=== PATIENT | female | born 1980 | race Caucasian/White ===

== ENCOUNTER 2021-06-07 09:38 | Outpatient (REF) | payer OTHER, SELFPAY ==
[2021-06-07 10:03] LABS: MANUAL DIFF FLAG NO
[2021-06-07 10:31] LABS: Basophils Absolute Auto 0.1 X10*3/uL (0.0-0.2); Basophils Percent Auto 0.9 % (0-2); Eosinophils Absolute Auto 0.2 X10*3/uL (0.0-0.4); Eosinophils Percent Auto 1.9 % (0-4); Hematocrit 27.3 % (37.0-47.0); Imm Gran Abs Auto 0.02 X10*3/uL (0.00-0.03); Imm Gran Pct Auto 0.2 % (0.0-0.4); Lymphocytes Absolute Auto 2.8 X10*3/uL (1.2-4.9); Lymphocytes Percent Auto 35.3 % (20-40); Mean Corpuscular HGB Conc 25.3 g/dl (31.0-35.0); Mean Corpuscular Hemoglobin 14.9 pg (27.0-33.0); Mean Platelet Volume 9.8 fL (9.4-12.3); Monocytes Absolute Auto 0.6 X10*3/uL (0.1-1.2); Neutrophils Absolute Auto 4.4 x10*3/uL (2.0-8.3); Neutrophils Percent Auto 54.7 % (45-73); Platelet Count 397 X10*3/uL (160-400); Red Blood Count 4.63 X10*6/uL (4.20-5.50); Red Cell Distribution Width 21.3 % (11.0-16.0); White Blood Count 8.1 X10*3/uL (4.8-10.8)
[2021-06-07 11:01] LABS: Hemoglobin 6.9 g/dl (12.0-16.0)
[2021-06-07 11:36] LABS: Alanine Aminotransferase 11 U/L (0-31); Albumin Level 4.2 g/dL (3.5-5.0); Alkaline Phosphatase 90 U/L (39-117); Anion Gap 12 (12-20); Aspartate Amino Transferase 12 U/L (5-31); Bilirubin Total 0.2 mg/dL (0.0-1.0); Blood Urea Nitrogen 12 mg/dL (9-16); Calcium 9.2 mg/dL (8.4-10.2); Carbon Dioxide 24 mmol/L (22-29); Chloride 107 mmol/L (96-108); Cholesterol 172 mg/dL; Estimated Glomerular Filt Rate > 60; Glucose Fasting 94 mg/dL (60-99); HDL Cholesterol 43 mg/dL; LDL Cholesterol Calculated 116 mg/dl; Potassium 4.8 mmol/L (3.3-5.1); Sodium 138 mmol/L (135-145); Total Protein 7.3 g/dL (6.5-8.0); Triglycerides 68 mg/dL
[2021-06-07 11:38] LABS: TSH reflex Free T4 1.51 uIU/mL (0.32-4.0)
[2021-06-08 06:36] LABS: DHEA Sulfate 66 mcg/dL (15-205); Follicle Stimulating Hormone 6.4 mIU/mL; Prolactin 6.5 ng/mL
[2021-06-15 14:11] LABS: Testosterone, Free 1.1 pg/mL (0.1-6.4); Testosterone, Total 9 ng/dL (2-45)
== END 2021-06-07 09:39 | disposition home or self-care (01) ==
LOC: HO.LAB 09:38
PROVIDERS: PCP Nurse Practitioner Family; Visit Provider Nurse Practitioner Family
DX: N92.6 Irregular menstruation, unspecified (principal); I10 Essential (primary) hypertension; E78.00 Pure hypercholesterolemia, unspecified; Z76.89 Persons encountering health services in other specified circumstances; Z13.1 Encounter for screening for diabetes mellitus
CPT/HCPCS: 36415; 80053; 80061; 82627; 83001; 84146; 84402; 84403; 84443; 85025

== ENCOUNTER 2021-06-07 11:33 | Emergency (ER) | payer OTHER, SELFPAY ==
[2021-06-07 12:52] VITALS: BP 159/78; PULSE 91; RESP 18; TEMP 36; O2SAT 100; BMI 35.7
[2021-06-07 14:04] VITALS: BP 128/77; PULSE 82; RESP 18; O2SAT 100
[2021-06-07] MEDS: 0.9 % Sodium Chloride 1,000 ML 999 ML IV (14:10)
--- NOTE | 2021-06-07 14:17 | ED_ITS ---
HPI - General Adult General Chief complaint: Recheck/Abnormal Lab/Rx Stated complaint: needs blood transfusion Time Seen by Provider: 06/07/21 12:51 Source: patient Limitations: no limitations History of Present Illness HPI narrative: Patient sent in by her PCP after outpatient labs revealed anemia with a hemoglobin of 6.9. Patient has a history of menorrhagia over the past 6 months. LMP was 2 weeks ago. She does not have any current active vaginal bleeding. She has been referred to Gynecology but has not yet seen them. She states she complains of some lightheadedness on occasion. She did have 1 episode 3 days ago where she thinks she might have passed out. No chest pain or dyspnea however. No prior history of anemia or transfusions. No GI bleeding or other source of bleeding. No nausea vomiting or significant abdominal pain Related Data Previous Rx's Medication Instructions Recorded ferrous sulfate 325 mg (65 mg 325 mg PO BID #60 tab 06/07/21 iron) tablet (Feosol) Allergies Allergy/AdvReac Type Severity Reaction Status Date / Time No Known Allergies Allergy Verified 06/07/21 09:03 Review of Systems Constitutional: Comments: No fevers or chills. Some malaise Cardiovascular: Comments: No chest pain or palpitation Respiratory: Comments: No dyspnea or cough Gastrointestinal: Comments: No abdominal pain Genitourinary: Comments: Menorrhagia as mentioned Integumentary/Breasts: Comments: No rash although she states she feels itchy Neurologic: Comments: No focal weakness PMFSH Past Medical History Surgical History History of loop electrical excision procedure (LEEP) History of neck surgery Family History Family History (Updated 06/07/21 @ 09:11 by PAUL FairchildC) Mother Diabetes Father Diabetes Maternal Grandmother Cervical cancer, Onset Age: 54 Maternal Aunt Cervical cancer, Onset Age: 50 Social History Social History (Updated 06/07/21 @ 08:54 by LYNN Chaparro) Housing: House Alcohol intake: current Alcohol intake frequency: holidays/special occasions only Patient Tobacco Use Status: Current everyday Tobacco user Tobacco use type: Cigarette and Pipe Cigarettes Per Day: 4 e-Cigarette/Vaping Use: Never Used Second Hand Smoke Exposure: Yes Advance Directives: No Advance Directives Information Provided: No service: No Current occupational status: employed 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 Vital signs normal. Resp Other: No respiratory distress Cardio Other: Normal heart rate GI Other: No abdominal pain Other: Deferred as patient is currently asymptomatic Skin Other: Warm and dry Neuro Other: Alert and oriented Course Course Course Narrative: Anemia secondary to menorrhagia. Hemoglobin confirmed at 6.9 from lab earlier today. IV normal saline ordered. I discussed with patient risks and benefits of transfusion. She does qualify as her hemoglobin is at 6.9, which is under the 7.0 limits. She understands that the benefit of transfusion is that it would probably make her symptomatic we feel better fairly quickly. She also understands the risks of transfusion reaction along with much smaller risk of Rogers pathogen transmission. Given the risk benefit ratio and the fact that she is not currently actively bleeding, she prefers conservative treatment with oral iron replacement therapy and semi urgent follow-up with gynecology to help control her menorrhagia prior to her next period. She will return if she has any significant bleeding in the meantime. 15:20. Patient is feeling much better after IV fluids. Stable for discharge home Discharge Plan Discharge Clinical Impression: Menorrhagia, Anemia Patient Disposition: Home, Self-Care Instructions: Menorrhagia (ED), Anemia (ED) Additional Instructions: Return if worse, especially if you have bleeding before you see a instrument technician apprentice. Prescriptions: New ferrous sulfate [Feosol] 325 mg (65 mg iron) tablet 325 mg PO BID Qty: 60 0RF
== END 2021-06-07 15:32 | disposition home or self-care (01) ==
PROVIDERS: Emergency Provider Emergency Medicine; PCP Nurse Practitioner Family
DX: N92.0 Excessive and frequent menstruation with regular cycle (principal); D64.9 Anemia, unspecified; F17.200 Nicotine dependence, unspecified, uncomplicated
CPT/HCPCS: 96360; 99284

== ENCOUNTER 2021-06-22 08:48 | Outpatient (REF) | payer OTHER, SELFPAY ==
--- NOTE | ~2021-06-22 | US_ITS ---
EXAMINATION: US PELVIS CLINICAL INFORMATION: Excessive and frequent menstruation. COMPARISON: None TECHNIQUE: Ultrasound of the pelvis is performed using both transabdominal and transvaginal transducers along with Doppler. Transvaginal imaging is performed due to inadequate visualization transabdominally. FINDINGS: UTERUS: The uterus is retroverted and measures 8.8 cm in length, 4.9 mL in AP and 5.3 cm in transverse dimension. The endometrium is not visualized well. The uterus is smooth in contour and has normal myometrial echogenicity. There is a submucosal echogenic lesion measuring 2.5 x 2.2 x 2.7 seen in the lower uterine segment/cervix with prominent vasculature. ADNEXA: Both ovaries are visualized. There is normal color flow to the adnexa. There is no ovarian torsion. There is no pelvic ascites or fluid collection. Right ovary measures 3.2 x 2.4 x 1.9 cm and volume 7.8 mL. There appears unremarkable. Left ovary measures 3.9 x 1.9 x 2.3 cm and volume 8.8 mL. There is a dominant follicle measuring 2.0 x 1.5 x 1.7 cm. US/US pelvic and transvaginal IMPRESSION: 1. Hyperechoic lesion in the cervical canal suspicious for a hypervascular fibroid, polyp or mass. Recommend endoscopy for further evaluation. 2. Small follicles with a dominant follicle, left ovary. 3. Unremarkable right ovary.
[2021-06-22 11:30] LABS: Basophils Absolute Auto 0.1 X10*3/uL (0.0-0.2); Basophils Percent Auto 0.8 % (0-2); Eosinophils Absolute Auto 0.2 X10*3/uL (0.0-0.4); Eosinophils Percent Auto 2.5 % (0-4); Hematocrit 33.9 % (37.0-47.0); Hemoglobin 8.5 g/dl (12.0-16.0); Imm Gran Abs Auto 0.03 X10*3/uL (0.00-0.03); Imm Gran Pct Auto 0.4 % (0.0-0.4); Lymphocytes Percent Auto 27.7 % (20-40); MANUAL DIFF FLAG SCAN; Mean Corpuscular HGB Conc 25.1 g/dl (31.0-35.0); Mean Corpuscular Hemoglobin 16.8 pg (27.0-33.0); Mean Corpuscular Volume 66.9 fL (80.0-98.0); Monocytes Absolute Auto 0.4 X10*3/uL (0.1-1.2); Monocytes Percent Auto 5.7 % (2-11); Neutrophils Absolute Auto 4.6 x10*3/uL (2.0-8.3); Neutrophils Percent Auto 62.9 % (45-73); PLT ABN DIST 1; Platelet Count 503 X10*3/uL (160-400); Red Blood Count 5.07 X10*6/uL (4.20-5.50); Red Cell Distribution Width 32.4 % (11.0-16.0); SCAN SMEAR FLAG 1; White Blood Count 7.3 X10*3/uL (4.8-10.8)
[2021-06-22 12:09] LABS: Anion Gap 12 (12-20); Blood Urea Nitrogen 12 mg/dL (9-16); Calcium 9.3 mg/dL (8.4-10.2); Carbon Dioxide 25 mmol/L (22-29); Chloride 106 mmol/L (96-108); Estimated Glomerular Filt Rate > 60; Folate 10.7 ng/mL (> or = 4.0); Glucose Random 92 mg/dL (60-115); Iron 214 mcg/dL (30-160); Percent Iron Saturation 48 % (15-50); Potassium 4.7 mmol/L (3.3-5.1); Sodium 138 mmol/L (135-145); Total Iron Binding Capacity 450 mcg/dL (228-428); Unsaturated Iron Binding 236 ug/dL; Vitamin B12 304 pg/mL (200-900)
[2021-06-22 12:18] LABS: SLIDE REVIEW VERIFIED
== END 2021-06-22 08:49 | disposition home or self-care (01) ==
LOC: HO.HMGCX 08:48
PROVIDERS: Visit Provider Nurse Practitioner Family
DX: N92.0 Excessive and frequent menstruation with regular cycle (principal); I10 Essential (primary) hypertension; R35.0 Frequency of micturition
CPT/HCPCS: 36415; 76830; 76856; 80048; 82607; 82746; 83540; 85025

== ENCOUNTER 2021-06-22 12:26 | Outpatient (REF) | payer OTHER, SELFPAY ==
--- NOTE | ~2021-06-22 | MM_ITS ---
EXAMINATION: MM SCREENING DIGITAL BREAST TOMOSYNTHESIS, BILATERAL CLINICAL INFORMATION: Screening. Asymptomatic. Age 41. No prior breast imaging. Family history breast cancer, maternal grandmother. The lifetime risk of breast cancer based on the Tyrer-Cuzick Model is 14%. COMPARISON: None (current study represents initial baseline exam). TECHNIQUE: Digital breast tomosynthesis is performed in both the craniocaudal and mediolateral oblique views along with computer-aided detection (CAD). Synthesized 2D images are generated from the tomosynthesis. Additional left MLO view is provided. FINDINGS: There are scattered areas of fibroglandular density (ACR BI-RADS breast composition Category b). There are no significant masses, abnormal calcifications, or other abnormalities. The axilla and skin contours are unremarkable. MM/MM tomosynthesis screening BI IMPRESSION: No mammographic evidence of malignancy. ASSESSMENT: BI-RADS 1: Negative RECOMMENDATION: Routine annual mammography screening. This patient's information was entered into a reminder system with a target due date for their next mammogram.
== END 2021-06-22 12:27 | disposition home or self-care (01) ==
LOC: HO.MAMMO 12:26
PROVIDERS: Visit Provider Nurse Practitioner Family
DX: Z12.31 Encounter for screening mammogram for malignant neoplasm of breast (principal)
CPT/HCPCS: 77063; 77067

== ENCOUNTER → 2021-06-30 09:58 | Outpatient (BNVA) | payer OTHER, SELFPAY | PROVIDERS: PCP Nurse Practitioner Family; Visit Provider Advanced Practice Midwife | DX: N93.9 Abnormal uterine and vaginal bleeding, unspecified (principal) | CPT/HCPCS: 99202; Q3014 ==

== ENCOUNTER 2021-07-03 08:54 | Outpatient (REF) | payer OTHER, SELFPAY ==
[2021-07-06 02:51] LABS: HPV mRNA E6/E7 rflx Not Detected (Not Detected)
== END 2021-07-03 08:55 | disposition home or self-care (01) ==
LOC: HO.LAB 08:54
PROVIDERS: PCP Nurse Practitioner Family; Visit Provider Obstetrics & Gynecology
DX: Z12.4 Encounter for screening for malignant neoplasm of cervix (principal); Z11.51 Encounter for screening for human papillomavirus (HPV); N88.8 Other specified noninflammatory disorders of cervix uteri; N93.9 Abnormal uterine and vaginal bleeding, unspecified
CPT/HCPCS: 81025; 87491; 87591; 87624; 88142; 88305

== ENCOUNTER 2021-07-19 14:27 | Outpatient (REF) | payer OTHER, SELFPAY | END 2021-07-19 14:28 | disposition home or self-care (01) | LOC: HO.LAB 14:27 | PROVIDERS: PCP Nurse Practitioner Family; Visit Provider Obstetrics & Gynecology | DX: Z13.89 Encounter for screening for other disorder (principal) ==

== ENCOUNTER 2021-07-20 09:22 | Outpatient (REF) | payer OTHER, SELFPAY ==
[2021-07-20 16:03] LABS: CT PCR NOT DETECTED (Not Detect.); NG PCR NOT DETECTED (Not Detect.)
== END 2021-07-20 09:23 | disposition home or self-care (01) ==
LOC: HO.LAB 09:22
PROVIDERS: PCP Nurse Practitioner Family; Visit Provider Obstetrics & Gynecology
DX: Z11.3 Encounter for screening for infections with a predominantly sexual mode of transmission (principal); N88.8 Other specified noninflammatory disorders of cervix uteri; N93.9 Abnormal uterine and vaginal bleeding, unspecified
CPT/HCPCS: 81025; 87491; 87591; 88305

== ENCOUNTER → 2021-08-11 12:31 | Outpatient (BNVA) | payer OTHER, SELFPAY | PROVIDERS: Visit Provider Obstetrics & Gynecology | DX: N84.1 Polyp of cervix uteri (principal) ==

== ENCOUNTER 2021-08-18 09:34 | Day surgery (SDC) | payer OTHER, SELFPAY ==
--- NOTE | 2021-08-17 09:14 | HO.ANESPROP2 ---
Documented by User: Brandy Hobson NP 08/17/21 09:18 HPI - Anesthesia Eval Consult details Narrative: 41yo F for Polypectomy with ECC PMFSH Active Problems Active Problems: All Active Problems (Updated 08/11/21 @ 12:49 by Regulo Ag MD) Unsatisfactory cervical Papanicolaou smear (Acute) Cervical polyp (Acute) Physical exam (Acute) Abnormal uterine bleeding (Acute) Cervical mass (Acute) Low hemoglobin and low hematocrit (Acute) Urinary frequency (Acute) Menorrhagia (Acute) Skin nodule (Acute) History of loop electrical excision procedure (LEEP) (Acute) Encounter to establish care (Acute) Family History Family History Mother Diabetes Father Diabetes Maternal Grandmother Cervical cancer, Onset Age: 54 Maternal Aunt Cervical cancer, Onset Age: 50 Surgical History Surgical History H/O tubal ligation History of loop electrical excision procedure (LEEP) History of neck surgery Social History Social History Housing: House Alcohol intake: current Alcohol intake frequency: does not drink Patient Tobacco Use Status: Current everyday Tobacco user Tobacco use type: Cigarette and Pipe Cigarettes Per Day: 4 e-Cigarette/Vaping Use: Never Used Second Hand Smoke Exposure: Yes Advance Directives: No Advance Directives Information Provided: Yes Patient : No service: No Current occupational status: employed 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 Cognitive needs: No Hearing needs: No Vision needs: Yes (glasses) Meds Allergies Allergy/AdvReac Type Severity Reaction Status Date / Time No Known Allergies Allergy Verified 07/03/21 09:31 Home Medications Medication Instructions Recorded Confirmed Last Taken Type calcium gluconate 60 mg calcium 60 mg PO DAILY 06/30/21 07/13/21 Unknown History (650 mg) tablet Exam Exam Date and Time: August 17, [id number] Pertinent Lab Results Pertinent Lab Results: Laboratory Tests 06/22/21 06/22/21 09:35 09:35 WBC 7.3 Hgb 8.5 L D Hct 33.9 L D Plt Count 503 H D Sodium 138 Potassium 4.7 Chloride 106 Carbon Dioxide 25 BUN 12 Creatinine 0.68 Assessment and Plan Assessment Anesthesia Assessment: Chart Reviewed Documented by User: Byron Porter MD 08/18/21 10:19 PMFSH Family History Family History Mother Diabetes Father Diabetes Maternal Grandmother Cervical cancer, Onset Age: 54 Maternal Aunt Cervical cancer, Onset Age: 50 Family history of problems with anesthesia: No Surgical History Surgical History H/O tubal ligation History of loop electrical excision procedure (LEEP) History of neck surgery History of Problems with Anesthesia: No Social History Social History Housing: House Alcohol intake: current Alcohol intake frequency: does not drink Patient Tobacco Use Status: Current everyday Tobacco user Tobacco use type: Cigarette and Pipe Cigarettes Per Day: 4 e-Cigarette/Vaping Use: Never Used Second Hand Smoke Exposure: Yes Advance Directives: No Advance Directives Information Provided: Yes Patient : No service: No Current occupational status: employed 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 Cognitive needs: No Hearing needs: No Vision needs: Yes (glasses) Meds Allergies Allergy/AdvReac Type Severity Reaction Status Date / Time No Known Allergies Allergy Verified 07/03/21 09:31 Home Medications Medication Instructions Recorded Confirmed Last Taken Type calcium gluconate 60 mg calcium 60 mg PO DAILY 06/30/21 07/13/21 Unknown History (650 mg) tablet Exam Airway Mallampati Class: II TM Dist: >3cm Neck ROM: Full Assessment and Plan Assessment Anesthesia Assessment: Anesthesia Plan Discussed Final Anesthetic Review Family History of Problems with Anesthesia: No History of Problems with Anesthesia: No NPO: Yes ASA Class: II Final Preanesthetic Review: No Changes in Pt Med Stat, Meds/Allgs Chart Reviewed, Consent Obtained/Reviewed and Anes Risks/Benef Reviewed Patient Risk: Low Procedure Risk: Low Anesthetic Plan Anesthetic Plan: GA Disposition: Standard PACU
[2021-08-18 06:54] VITALS: BMI 35.5
[2021-08-18 09:44] VITALS: BP 116/93; PULSE 80; RESP 18; TEMP 35.9; O2SAT 97
[2021-08-18 10:01] LABS: UPreg QC Valid YES; Urine Pregnancy NEGATIVE (NEGATIVE)
[2021-08-18] MEDS: Lactated Ringers 1,000 ML 100 ML IVCONT (10:06)
--- NOTE | 2021-08-18 10:18 | MHC.SHP ---
Pre-Procedural Eval Section A Date of Service: 08/18/21 The patient is an INPATIENT: No Changes since office visit: No Cold of Flu in the past 2 weeks, No New Medical Problems, No Changes in Medication and No Patient answered all questions The History & Physical has been completed within 30 days and I have reviewed it.: Yes Section B Chief Complaint: Polyp of cervix uteri Allergies: Allergies Allergy/AdvReac Type Severity Reaction Status Date / Time No Known Allergies Allergy Verified 07/03/21 09:31 Plan Diagnosis/Plan: Unchanged I have reviewed the history and physical and performed a pertinent physical examination on my patient. No changes have occurred unless specified.
--- NOTE | 2021-08-18 11:04 | PM.OP ---
Brief Operative Note Date of Service: 08/18/21 Pre-op diagnosis: 3 cm Endocervical polyp Post-op diagnosis: same (Excision of endocervical) Procedure: Excision of endocervical polyp Surgeon: Regulo Ag MD Was an Straightener used for this Procedure?: No Estimated blood loss (mL): 0 Pathology: other (Endocervical polyp) Condition: stable Disposition: PACU
--- NOTE | 2021-08-18 11:05 | W.PM.OPN ---
Operative Note Operative Note Date of Service: 08/18/21 Narrative: Preop diagnosis: 3 cm Endocervical polyp Operation: Excision of endocervical polyp Postop diagnosis: The same Quantitative blood loss : 0 cc Pathology endocervical: polyp Complications: none Procedure: The patient was put in the dorsal is stomach position was scrubbed and draped in the usual sterile fashion. A speculum was inserted in the patient's vagina, the endocervical polyp was grasped with single-tooth tenaculum and pulled outside endocervical canal. Identifying the base of the endocervical polyp stalk, and using electrocautery, the endocervical polyp was excised from its base, electrocautery was used to secure hemostasis. The patient tolerated the procedure well, all instruments were taken out of the patient vaginal cavity and the patient was transferred to the PACU in stable conditions.
[2021-08-18 11:11] VITALS: BP 127/62; PULSE 92; RESP 14; TEMP 36.1; O2SAT 96
[2021-08-18 11:16] VITALS: BP 116/66; PULSE 83; RESP 14; O2SAT 97
[2021-08-18 11:21] VITALS: BP 129/79; PULSE 86; RESP 16; O2SAT 97
[2021-08-18 11:26] VITALS: BP 126/80; PULSE 89; RESP 16; O2SAT 96
[2021-08-18 11:40] VITALS: BP 129/80; PULSE 72; RESP 16; O2SAT 99
== END 2021-08-18 12:05 | disposition home or self-care (01) ==
PROVIDERS: PCP Nurse Practitioner Family; Visit Provider Obstetrics & Gynecology
PROC: 0UBC7ZZ Excision of Cervix, Via Natural or Artificial Opening (ICD-10-PCS; CPT 57522; principal; 2021-08-18 11:20)
DX: N84.1 Polyp of cervix uteri (principal); N93.9 Abnormal uterine and vaginal bleeding, unspecified; R87.615 Unsatisfactory cytologic smear of cervix; Z98.51 Tubal ligation status; Z98.890 Other specified postprocedural states; F17.210 Nicotine dependence, cigarettes, uncomplicated
CPT/HCPCS: 57500; 81025; 88305; J1100; J2250; J2405; J3010

== ENCOUNTER → 2021-08-31 11:19 | Outpatient (BNVA) | payer OTHER, SELFPAY | PROVIDERS: PCP Nurse Practitioner Family; Visit Provider Obstetrics & Gynecology | DX: D25.9 Leiomyoma of uterus, unspecified (principal) ==

== ENCOUNTER 2022-02-06 09:47 | Outpatient (REF) | payer OTHER, SELFPAY ==
[2022-02-06 10:11] LABS: Hematocrit 40.2 % (37.0-47.0); Hemoglobin 12.6 g/dl (12.0-16.0); Mean Corpuscular HGB Conc 31.3 g/dl (31.0-35.0); Mean Corpuscular Hemoglobin 24.2 pg (27.0-33.0); Mean Corpuscular Volume 77.3 fL (80.0-98.0); Mean Platelet Volume 9.7 fL (9.4-12.3); Platelet Count 450 X10*3/uL (160-400); Red Cell Distribution Width 14.6 % (11.0-16.0)
== END 2022-02-06 09:48 | disposition home or self-care (01) ==
LOC: HO.LAB 09:47
PROVIDERS: PCP Physician Assistant; Visit Provider Obstetrics & Gynecology
DX: D25.9 Leiomyoma of uterus, unspecified (principal)
CPT/HCPCS: 36415; 85027

== ENCOUNTER 2023-11-27 09:32 | Outpatient (AMB) | payer OTHER, BC, SELFPAY ==
[2023-11-27 09:34] VITALS: BP 124/82; PULSE 88; O2SAT 99; BMI 37.3
--- NOTE | 2023-11-27 09:34 | A.OFFPC_ITS ---
Vital Signs 11/27/23 09:34 Height 5 ft 5 in Weight 224 lb BMI 37.3 BP 124/82 Blood Pressure Location Lt brachial Position Sitting Pulse 88 Pulse Source Pulse Oximeter Pulse Oximetry (%) 99 Oxygen Delivery Method Room Air Intake Visit Reasons: PE Intake Note: Patient is here today for a physical. 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 Patient has a past medical history of iron deficiency anemia. Nyla--> reports over the last few months she has been having worsening dizziness episodes especially related to changes in her head movements or body position. She does report a few episodes of passing out. She otherwise denies any heart palpitations, chest discomfort, shortness of breath, vomiting or diarrhea. She attributes these symptoms to perhaps having anemia again thus will recheck labs. .. Obesity: Patient does understand her BMI is well over 30 will work on being more physically active and adapting a better eating habits to reduce her weight . 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 Vaccine: Patient up-to-date with COVID vaccine, flu vaccine. Needs tetanus vaccine [facility] Surgical History H/O tubal ligation History of loop electrical excision procedure (LEEP) History of neck surgery Family History Mother Diabetes Father Diabetes Maternal Grandmother Cervical cancer, Onset Age: 54 Maternal Aunt Cervical cancer, Onset Age: 50 Social History (Updated 11/27/23 @ 09:55 by Jaren Barrett PA-C) Housing: House Alcohol intake: never Patient Tobacco Use Status: Current someday Tobacco user Tobacco use type: Cigarette and Pipe Cigarettes Per Day: 4 e-Cigarette/Vaping Use: Never Used Second Hand Smoke Exposure: Yes service: No Current occupational status: employed 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 1. Little interest or pleasure in doing things: more than half the days 2. Feeling down, depressed, or hopeless: more than half the days 3. Trouble falling or staying asleep, or sleeping too much: nearly every day 4. Feeling tired or having little energy: more than half the days 5. Poor appetite or overeating: not at all 6. Feeling bad about yourself - or that you are a failure or have let yourself or your family down: not at all 7. Trouble concentrating on things, such as reading the newspaper or watching television: more than half the days 8. Moving or speaking so slowly that other people could have noticed. Or the opposite - being so fidgety or restless that you have been moving around a lot more than usual: not at all 9. Thoughts that you would be better off or of hurting yourself in some way: not at all Total score: 11 Depression Screening Interpretation: Positive Depression Screening Follow-up: Existing condition and Declines treatment Depression Screening Done: Yes 02621 - PHQ-9 Billing: Yes Source: Developed by Drs. Lex Troy, Fiona Greco, Kolby Andrews and colleagues, with an educational charu from [employer]. Thrive Questionnaire Date Thrive assessed: 11/27/23 I am a: Patient What is your living situation today?: I have a steady place to live Within the past 12 months, did the food you bought not last and you didn't have the money to get more?: Never true Within the past 12 months, did you worry whether your food would run out before you got money to buy more?: Never true Do you have trouble paying for medicines?: No Do you have trouble getting transportation to medical appointments?: No Do you have trouble paying your heating and electricity bill?: No Do you have trouble taking care of your child, family member or friend?: No Do you have trouble with day-to-day activities such as bathing, preparing meals, shopping, managing finances, etc.?: No Are you currently unemployed and looking for a job?: No Are you interested in more education?: No Please select the resources that you would like help with: None Currently or been in a relationship where the following occur: No concerns reported THRIVE Score: 0 AUDIT C Alcohol Use Questionnaire (AUDIT-C) 1. How often do you have a drink containing alcohol?: Monthly or less 2. How many drinks containing alcohol do you have on a typical day when you are drinking?: 1 or 2 3. How often do you have six or more drinks on one occasion?: Never Total Score: 1 BETHANY-7 AMB Questionnaire BETHANY-7 Date BETHANY - 7 assessed: 11/27/23 Feeling nervous, anxious, or on edge: 2 = More than half the days Not being able to stop or control worryin = Nearly every day Worrying too much about different things: 3 = Nearly every day Trouble relaxin = More than half the days Being so restless that it is hard to sit still: 2 = More than half the days Becoming easily annoyed or irritable: 0 = Not at all Feeling afraid as if something awful might happen: 1 = Several days Total BETHANY-7 score (0-4 normal; 5-9 mild; 10-14 moderate; 15-21 severe): 13 Source: Developed by Drs. Lex Troy, Fiona Greco, Kolby Andrews and colleagues, with an educational charu from [employer] BETHANY-7 Assessment Billing BETHANY-7 Assessment Tool: BETHANY-7 Assessment 31430 Review of Systems Const Denies body aches, Denies chills, Denies excessive sweating, Denies fatigue, Denies fever(s) and Denies headache(s) Eyes Denies blurry vision ENT Denies dysphagia, Denies vertigo, Denies dizziness, Denies headache(s), Denies hearing loss and Denies tinnitus Card Denies chest pain, Denies chest pain with activity, Denies syncope, Denies irregular heart rhythm and Denies dyspnea Resp Denies chest congestion, Denies cough, Denies hemoptysis, Denies dyspnea and Denies wheezing GI Denies abdominal pain, Denies melena, Denies hematochezia, Denies coffee ground emesis, Denies dysphagia, Denies diarrhea, Denies nausea and Denies vomiting Denies urinary frequency, Denies dysuria, Denies urinary hesitancy and Denies urinary urgency Musc Denies arthralgias, Denies limited range of motion, Denies muscle cramps and Denies muscle weakness Skin/Breast Denies rash and Denies skin ulcer Neuro Denies Abnormal speech present, Denies confusion, Denies vertigo, Denies dizziness, Denies syncope, Denies headache(s), Denies memory loss and Denies seizure-like activity Psych Denies anxiety, Denies confusion, Denies depression, Denies memory loss, Denies panic attacks and Denies paranoia Endo Denies excessive sweating, Denies fatigue, Denies flushing, Denies polydipsia and Denies polyuria Aller/Immun Denies wheezing Physical exam (Primary Care) Vital Signs: Last Vital Signs Pulse 88 11/27/23 09:34 BP 124/82 11/27/23 09:34 Pulse Ox 99 11/27/23 09:34 Oxygen Delivery Method Room Air 11/27/23 09:34 BMI result Body Mass Index 37.3 Tobacco/Smoking Status: Tobacco use Status Tobacco use date assessed 11/27/23 11/27/23 09:51 Patient Tobacco Use Status Current someday Tobacco 11/27/23 10:02 Tobacco use type Cigarette,Pipe 11/27/23 09:55 e-Cigarette/Vaping Use Never Used 11/27/23 09:55 PHQ-9: PHQ-9 Score PHQ-9: Total score 11 11/27/23 10:02 Depression Screening Interpretation: Positive Depression Screening Follow-up: Existing condition and Declines treatment Thrive Assessment: Date of Thrive Assessment Date Thrive assessed 11/27/23 11/27/23 09:48 Currently or been in a relationship where the following occur: No concerns reported Const General: cooperative, comfortable, no acute distress, alert and awake; No confusion Orientation/consciousness: oriented to person, oriented to place, patient oriented x3 and No confusion HENMT Head: Yes normocephalic Ears: external ears normal and TM's normal bilaterally Face and sinus: No sinus tenderness Mouth: Normal oral and palatal mucosa present and tongue normal Teeth and gingiva: dentition normal and gingiva normal Throat: Yes posterior oropharynx normal, Yes tonsils normal and Yes uvula midline Eyes Conjunctivae: conjunctivae normal Sclerae: sclerae normal Pupils: Equal, round and reactive pupils present EOM: EOMs intact bilaterally Direct Ophthalmoscopy: No no photophobia Neck Neck: Yes no lymphadenopathy, No tender and Yes no JVD Thyroid: Thyroid normal Carotids: no bruits Chest Chest palpation & inspection: no tenderness Resp Effort & Inspection: normal respiratory effort, no audible wheezes, not labored and no stridor Auscultation: no crackles, no rales, no rhonchi and no wheezes Cardio Jugular venous distension: no JVD Rate: regular rate, not bradycardic and not tachycardic Rhythm: regular rhythm Bruits: no carotid bruits Peripheral pulses: Peripheral pulses 2+ throughout GI Inspection: Yes normal to inspection, No abdominal wall ecchymosis and No visible herniation Palpation (GI): Soft to palpation, nontender, no guarding, not rigid and No hepatosplenomegaly present Auscultation: normoactive bowel sounds General: Yes no CVA tenderness Back/Spine/Pelvis Back: no CVA tenderness and No back tenderness Cervical Spine: cervical ROM normal Thoracic/Lumbar Spine: thoracic and lumbar spine normal to inspection, straight leg raise negative bilaterally, No thoraco-lumbar ROM limited and No lumbar spinal tenderness Skin Lesions: no lesions Rashes: no rashes Wounds: no wounds Neuro General: oriented to person, oriented to place, patient oriented x3, CN's II-XI intact bilaterally and No confusion Cranial nerves: Yes Equal, round and reactive pupils present and Yes Normal accommodation reflex present Cognition (Neuro): normal cognition Speech: No Abnormal speech present Gait exam (Neuro): Normal gait present Motor exam (neuro): 5/5 motor strength present throughout Extrem Right upper extremity: full ROM; no cyanosis Left upper extremity: full ROM; no cyanosis Right lower extremity: no edema Left lower extremity: no edema Psych Appearance: grossly normal Mental Status: mental status grossly normal Affect: normal affect Attitude: cooperative Thought process: Normal thought process present Assessment and Plan Assessment & Plan (1) Annual physical exam: Code(s): Z00.00 - Encounter for general adult medical examination without abnormal findings (2) Iron deficiency: Code(s): E61.1 - Iron deficiency Plan: Patient has a history of iron deficiency anemia. Has of late has been noting seeing some bruising and fatigue and syncopal episodes. Will recheck iron and blood levels. (3) Dizziness: Code(s): R42 - Dizziness and giddiness (4) Fatigue: Code(s): R53.83 - Other fatigue Qualifiers: Fatigue type: unspecified Qualified Code(s): R53.83 - Other fatigue Plan: As above over the last few months has been experiencing more fatigue, dizziness and bruising. Suspecting she has again anemia. Will recheck CBC and iron studies. (5) Screening for diabetes mellitus (DM): Code(s): Z13.1 - Encounter for screening for diabetes mellitus (6) BETHANY (generalized anxiety disorder): Code(s): F41.1 - Generalized anxiety disorder Plan: Patient's BETHANY-7 score positive for anxiety which has been existing condition for her. Most of her anxiety comes from her stressful job and long work hours. He is not interested in medication or mental health therapy at this time. (7) MDD (major depressive disorder), recurrent episode, mild: Code(s): F33.0 - Major depressive disorder, recurrent, mild Plan: Patient's PHQ-9 score positive for mild depression which has been existing condition for her. Again a lot of her mood is related to her job and lack of sleep. Orders: Orders IRON PROFILE 11/27/23 D50.9 - Iron deficiency anemia, unspecified, R42 - Dizziness and giddiness Complete Blood Count no Diff 11/27/23 E61.1 - Iron deficiency TSH reflex Free T4 11/27/23 R53.83 - Other fatigue Comprehensive Bison. Panel Fast 11/27/23 Z13.1 - Encounter for screening for diabetes mellitus Coding Level of Care Code Est Pt Prev Care 40-64y(42231) Diagnoses Annual physical exam Z00.00 Iron deficiency E61.1 Dizziness R42 Fatigue, unspecified type R53.83 Fatigue type: unspecified Screening for diabetes mellitus (DM) Z13.1 BETHANY (generalized anxiety disorder) F41.1 MDD (major depressive disorder), recurrent episode, mild F33.0 Additional Codes BETHANY-7 Assessment Billing - BETHANY-7 Assessment Tool: BETHANY-7 Assessment [id number] ([id number])
== END 2023-11-27 10:10 | disposition home or self-care (01) ==
PROVIDERS: PCP Physician Assistant; Visit Provider Physician Assistant
DX: Z00.00 Encounter for general adult medical examination without abnormal findings (principal); E61.1 Iron deficiency; F33.0 Major depressive disorder, recurrent, mild; R42 Dizziness and giddiness; R53.83 Other fatigue; Z13.1 Encounter for screening for diabetes mellitus; F41.1 Generalized anxiety disorder
CPT/HCPCS: 99396

== ENCOUNTER 2023-11-29 08:31 | Outpatient (REF) | payer OTHER, BC, SELFPAY ==
[2023-11-29 09:33] LABS: Hematocrit 37.1 % (37.0-47.0); Hemoglobin 10.8 g/dl (12.0-16.0); Mean Corpuscular HGB Conc 29.1 g/dl (31.0-35.0); Mean Corpuscular Volume 68.6 fL (80.0-98.0); Mean Platelet Volume 9.7 fL (9.4-12.3); Platelet Count 434 X10*3/uL (160-400); Red Blood Count 5.41 X10*6/uL (4.20-5.50); Red Cell Distribution Width 19.9 % (11.0-16.0); White Blood Count 10.5 X10*3/uL (4.8-10.8)
[2023-11-29 10:24] LABS: Alanine Aminotransferase 17 U/L (0-31); Alkaline Phosphatase 92 U/L (39-117); Anion Gap 11 (12-20); Aspartate Amino Transferase 14 U/L (5-31); Bilirubin Total 0.3 mg/dL (0.0-1.0); Blood Urea Nitrogen 15 mg/dL (9-16); Calcium 9.3 mg/dL (8.4-10.2); Carbon Dioxide 25 mmol/L (22-29); Chloride 109 mmol/L (96-108); Estimated Glomerular Filt Rate > 60; Glucose Fasting 118 mg/dL (60-99); Iron 20 mcg/dL (30-160); Percent Iron Saturation 6 % (15-50); Potassium 4.6 mmol/L (3.3-5.1); Sodium 140 mmol/L (135-145); Total Iron Binding Capacity 347 mcg/dL (228-428); Total Protein 7.6 g/dL (6.5-8.0); Unsaturated Iron Binding 327 ug/dL
[2023-11-29 10:31] LABS: TSH reflex Free T4 1.36 uIU/mL (0.32-4.0)
== END 2023-11-29 08:32 | disposition home or self-care (01) ==
LOC: HO.LAB 08:31
PROVIDERS: PCP Physician Assistant; Visit Provider Physician Assistant
DX: D50.9 Iron deficiency anemia, unspecified (principal); R42 Dizziness and giddiness; R53.83 Other fatigue; Z13.1 Encounter for screening for diabetes mellitus
CPT/HCPCS: 36415; 80053; 83540; 84443; 85027

== ENCOUNTER 2023-12-05 11:05 | Outpatient (REF) | payer OTHER, BC, SELFPAY ==
[2023-12-05 12:29] LABS: Hematocrit 38.6 % (37.0-47.0); Hemoglobin 11.3 g/dl (12.0-16.0); Mean Corpuscular HGB Conc 29.3 g/dl (31.0-35.0); Mean Corpuscular Volume 68.2 fL (80.0-98.0); Platelet Count 490 X10*3/uL (160-400); Red Blood Count 5.66 X10*6/uL (4.20-5.50); Red Cell Distribution Width 19.8 % (11.0-16.0); White Blood Count 9.8 X10*3/uL (4.8-10.8)
[2023-12-05 12:48] LABS: Iron 40 mcg/dL (30-160); Percent Iron Saturation 11 % (15-50); Total Iron Binding Capacity 375 mcg/dL (228-428); Unsaturated Iron Binding 335 ug/dL
[2023-12-05 13:01] LABS: Estimated Average Glucose 117 mg/dL; Hemoglobin A1c % 5.7 % (<6.0)
== END 2023-12-05 11:06 | disposition home or self-care (01) ==
LOC: HO.LAB 11:05
PROVIDERS: PCP Physician Assistant; Visit Provider Physician Assistant
DX: D50.9 Iron deficiency anemia, unspecified (principal); E61.1 Iron deficiency; R73.01 Impaired fasting glucose
CPT/HCPCS: 36415; 83036; 83540; 85027

== ENCOUNTER 2024-11-30 08:55 | Outpatient (AMB) | payer OTHER, BC, SELFPAY ==
--- NOTE | 2024-11-30 08:58 | A.OFFPC_ITS ---
Vital Signs 11/30/24 09:00 Height 5 ft 5 in Weight 225 lb 6 oz BMI 37.5 BP 138/80 Blood Pressure Location Lt brachial Position Sitting Pulse 87 Pulse Source Pulse Oximeter Pulse Oximetry (%) 96 Oxygen Delivery Method Room Air Intake Visit Reasons: ANNUAL Bobbin Cleaner Hand Required: No Accompanied by: Self / Same As Patient Allergies No Known Allergies Allergy (Verified 11/30/24 09:20) Medication List - Last Reconciled 11/30/24 by Jaren Barrett PA-C ferrous sulfate 325 mg PO BID 30 days Tobacco use date assessed: 11/30/24 Dental Screening Dental Screen Date: 11/30/24 Did you have a dental visit in the last 12 months?: Yes Did you have a dental problem in the last 6 months where you did not have access to dental care?: No Was dental information given to patient?: Patient has dentist HPI ANNUAL HPI Details Patient is a 44-year-old female here today for for an annual physical. Patient has a past medical history of iron deficiency anemia, impaired glucose metabolism, obesity family history type 2 diabetes Concerns--> The patient has a history of iron deficiency anemia, which she has had since childhood. She reports experiencing constipation, which she attributes to her iron supplements, and has been managing it with defj-[id number]-[id number] laxatives and dietary adjustments. She has had irregular menstrual cycles and underwent a LEEP procedure in the past, which may contribute to her anemia. .. Impaired glucose metabolism: Most recent fasting blood sugar slightly elevated at 118. The patient has a strong family history of diabetes mellitus, with her father, mother, brother, and sister all diagnosed with the condition. She is concerned about her risk and will undergo screening with fasting blood sugar and A1c tests. .. Class 2 Obesity: Patient does understand her BMI is well over 30 will work on being more physically active and adapting a better eating habits to reduce her weight . .. 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 The patient reports menopausal symptoms, including emotional instability and heavier menstrual bleeding than usual. She has not yet experienced cessation of menstruation but is aware of her family history of early menopause. Vaccine: Patient up-to-date with COVID vaccine, flu vaccine. Needs Tdap vaccine . Mammo: needs Colon cancer screening: Patient in need for colon cancer screening PFSH Surgical History H/O tubal ligation History of loop electrical excision procedure (LEEP) History of neck surgery Family History Mother Diabetes Father Diabetes Maternal Grandmother Cervical cancer, Onset Age: 54 Maternal Aunt Cervical cancer, Onset Age: 50 Brother Diabetes Sister Diabetes Social History Housing: House Alcohol intake: never Patient Tobacco Use Status: Current someday Tobacco user Tobacco use type: Cigarette and Pipe Cigarettes Per Day: 4 e-Cigarette/Vaping Use: Never Used Second Hand Smoke Exposure: Yes service: No Current occupational status: employed 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 1. Little interest or pleasure in doing things: several days 2. Feeling down, depressed, or hopeless: several days 3. Trouble falling or staying asleep, or sleeping too much: several days 4. Feeling tired or having little energy: several days 5. Poor appetite or overeating: several days 6. Feeling bad about yourself - or that you are a failure or have let yourself or your family down: several days 7. Trouble concentrating on things, such as reading the newspaper or watching te levision: several days 8. Moving or speaking so slowly that other people could have noticed. Or the opposite - being so fidgety or restless that you have been moving around a lot more than usual: not at all 9. Thoughts that you would be better off or of hurting yourself in some way: not at all Total score: 7 Depression Screening Interpretation: Positive Depression Screening Follow-up: Existing condition and New Medication prescribed Depression Screening Done: Yes 46487 - PHQ-9 Billing: Yes Source: Developed by Drs. Lex Troy, Fiona Greco, Kolby Andrews and colleagues, with an educational charu from [employer]. Thrive Questionnaire Date Thrive assessed: 11/23/24 I am a: Patient What is your living situation today?: I have a steady place to live Within the past 12 months, did the food you bought not last and you didn't have the money to get more?: Never true Within the past 12 months, did you worry whether your food would run out before you got money to buy more?: Never true Do you have trouble paying for medicines?: No Do you have trouble getting transportation to medical appointments?: No Do you have trouble paying your heating and electricity bill?: No Do you have trouble taking care of your child, family member or friend?: No Do you have trouble with day-to-day activities such as bathing, preparing meals, shopping, managing finances, etc.?: No Are you currently unemployed and looking for a job?: No Are you interested in more education?: No Please select the resources that you would like help with: None Currently or been in a relationship where the following occur: I choose not to answer THRIVE Score: 0 AUDIT C Alcohol Use Questionnaire (AUDIT-C) 1. How often do you have a drink containing alcohol?: Monthly or less 2. How many drinks containing alcohol do you have on a typical day when you are drinking?: 1 or 2 3. How often do you have six or more drinks on one occasion?: Never Total Score: 1 BETHANY-7 AMB Questionnaire BETHANY-7 Date BETHANY - 7 assessed: 11/27/23 Feeling nervous, anxious, or on edge: 2 = More than half the days Not being able to stop or control worryin = More than half the days Worrying too much about different things: 1 = Several days Trouble relaxin = Several days Being so restless that it is hard to sit still: 2 = More than half the days Becoming easily annoyed or irritable: 0 = Not at all Feeling afraid as if something awful might happen: 2 = More than half the days Total BETHANY-7 score (0-4 normal; 5-9 mild; 10-14 moderate; 15-21 severe): 10 Source: Developed by Drs. Lex Troy, Fiona Greco, Kolby Andrews and colleagues, with an educational chaur from [employer] BETHANY-7 Assessment Billing BETHANY-7 Assessment Tool: BETHANY-7 Assessment 75394 Review of Systems Const Denies body aches, Denies chills, Denies excessive sweating, Denies fatigue, Denies fever(s) and Denies headache(s) Eyes Denies blurry vision ENT Denies dysphagia, Denies vertigo, Denies dizziness, Denies headache(s), Denies hearing loss and Denies tinnitus Card Denies chest pain, Denies chest pain with activity, Denies syncope, Denies irregular heart rhythm and Denies dyspnea Resp Denies chest congestion, Denies cough, Denies hemoptysis, Denies dyspnea and Denies wheezing GI Denies abdominal pain, Denies melena, Denies hematochezia, Denies coffee ground emesis, Denies dysphagia, Denies diarrhea, Denies nausea and Denies vomiting Denies urinary frequency, Denies dysuria, Denies urinary hesitancy and Denies urinary urgency Musc Denies arthralgias, Denies limited range of motion, Denies muscle cramps and Denies muscle weakness Skin/Breast Denies rash and Denies skin ulcer Neuro Denies Abnormal speech present, Denies confusion, Denies vertigo, Denies dizziness, Denies syncope, Denies headache(s), Denies memory loss and Denies seizure-like activity Psych Denies anxiety, Denies confusion, Denies depression, Denies memory loss, Denies panic attacks and Denies paranoia Endo Denies excessive sweating, Denies fatigue, Denies flushing, Denies polydipsia and Denies polyuria Aller/Immun Denies wheezing Physical exam (Primary Care) Vital Signs: Last Vital Signs Pulse 87 11/30/24 09:00 BP 138/80 11/30/24 09:00 Pulse Ox 96 11/30/24 09:00 Oxygen Delivery Method Room Air 11/30/24 09:00 BMI result Body Mass Index 37.5 Tobacco/Smoking Status: Tobacco use Status Tobacco use date assessed 11/30/24 11/30/24 09:07 Patient Tobacco Use Status Current someday Tobacco 11/30/24 09:01 Tobacco use type Cigarette,Pipe 11/30/24 09:01 e-Cigarette/Vaping Use Never Used 11/30/24 09:01 PHQ-9: PHQ-9 Score PHQ-9: Total score 7 11/30/24 09:07 Depression Screening Interpretation: Positive Depression Screening Follow-up: Existing condition and New Medication prescribed Thrive Assessment: Date of Thrive Assessment Date Thrive assessed 11/23/24 11/30/24 09:01 Currently or been in a relationship where the following occur: I choose not to answer Const General: cooperative, comfortable, no acute distress, alert and awake; No confusion Orientation/consciousness: oriented to person, oriented to place, patient oriented x3 and No confusion HENMT Head: Yes normocephalic Ears: external ears normal and TM's normal bilaterally Face and sinus: No sinus tenderness Mouth: Normal oral and palatal mucosa present and tongue normal Teeth and gingiva: dentition normal and gingiva normal Throat: Yes posterior oropharynx normal, Yes tonsils normal and Yes uvula midline Eyes Conjunctivae: conjunctivae normal Sclerae: sclerae normal Pupils: Equal, round and reactive pupils present EOM: EOMs intact bilaterally Direct Ophthalmoscopy: No no photophobia Neck Neck: Yes no lymphadenopathy, No tender and Yes no JVD Thyroid: Thyroid normal Carotids: no bruits Chest Chest palpation & inspection: no tenderness Resp Effort & Inspection: normal respiratory effort, no audible wheezes, not labored and no stridor Auscultation: no crackles, no rales, no rhonchi and no wheezes Cardio Jugular venous distension: no JVD Rate: regular rate, not bradycardic and not tachycardic Rhythm: regular rhythm Bruits: no carotid bruits Peripheral pulses: Peripheral pulses 2+ throughout GI Inspection: Yes normal to inspection, No abdominal wall ecchymosis and No visible herniation Palpation (GI): Soft to palpation, nontender, no guarding, not rigid and No hepatosplenomegaly present Auscultation: normoactive bowel sounds General: Yes no CVA tenderness Back/Spine/Pelvis Back: no CVA tenderness and No back tenderness Cervical Spine: cervical ROM normal Thoracic/Lumbar Spine: thoracic and lumbar spine normal to inspection, straight leg raise negative bilaterally, No thoraco-lumbar ROM limited and No lumbar spinal tenderness Skin Lesions: no lesions Rashes: no rashes Wounds: no wounds Neuro General: oriented to person, oriented to place, patient oriented x3, CN's II-XI intact bilaterally and No confusion Cranial nerves: Yes Equal, round and reactive pupils present and Yes Normal accommodation reflex present Cognition (Neuro): normal cognition Speech: No Abnormal speech present Gait exam (Neuro): Normal gait present Motor exam (neuro): 5/5 motor strength present throughout Extrem Right upper extremity: full ROM; no cyanosis Left upper extremity: full ROM; no cyanosis Right lower extremity: no edema Left lower extremity: no edema Psych Appearance: grossly normal Mental Status: mental status grossly normal Affect: normal affect Attitude: cooperative Thought process: Normal thought process present Coding Level of Care Code Est Pt Prev Care 40-64y(09514) Diagnoses Annual physical exam Z00.00 MDD (major depressive disorder), recurrent episode, mild F33.0 Colon cancer screening Z12.11 Class 2 obesity E66.812 Iron deficiency E61.1 Additional Codes BETHANY-7 Assessment Billing - BETHANY-7 Assessment Tool: BETHANY-7 Assessment 82088 ([id number]) PHQ-9 - 95987 - PHQ-9 Billing: Yes ([id number]) Assessment & Plan Assessment & Plan (1) Annual physical exam: Code(s): Z00.00 - Encounter for general adult medical examination without abnormal findings Category: Medical Plan: As per HPI (2) MDD (major depressive disorder), recurrent episode, mild: Code(s): F33.0 - Major depressive disorder, recurrent, mild Category: Medical Plan: Patient's PHQ-9 score positive. She has been having increased depression as of lately. She is willing to try SSRI medication to help reduce her depressive moods. Unclear if this is related to hormonal controls design engineer issue. (3) Colon cancer screening: Code(s): Z12.11 - Encounter for screening for malignant neoplasm of colon Category: Medical Plan: Patient in need of colorectal cancer screening (4) Class 2 obesity: Code(s): E66.812 - Obesity, class 2 Category: Medical Plan: Patient does understand her BMI is over 35 and will work on being more physically active and adapting to better eating habits (5) Iron deficiency: Code(s): E61.1 - Iron deficiency Category: Medical Plan: The patient will be referred to a airframe design engineer for further evaluation and potential iron infusion therapy due to chronic iron deficiency anemia. Starting to have constipation likely due to her iron supplementation.. Advised on fiber supplementation. She is advised to reduce iron supplement intake to three times a week and maintain a diet rich in iron. Orders: Orders Comprehensive [facility]. Panel Fast Today Z13.1 - Encounter for screening for diabetes mellitus TSH reflex Free T4 Today N92.0 - Excessive and frequent menstruation with regular cycle MM screening mammo BI Today Z12.31 - Encounter for screening mammogram for malignant neoplasm of breast Complete Blood Count no Diff Today Z13.1 - Encounter for screening for diabetes mellitus IRON PROFILE Today D50.9 - Iron deficiency anemia, unspecified, E61.1 - Iron deficiency Hemoglobin A1c Today R73.01 - Impaired fasting glucose Referrals RADIATION THERAPY TECHNICIAN Referral D25.9 - Leiomyoma of uterus, unspecified, Z12.11 - Encounter for screening for malignant neoplasm of colon Gastroenterology Referral Z12.11 - Encounter for screening for malignant neop lasm of colon Hematology & Oncology Referral D64.9 - Anemia, unspecified Medications: New fluoxetine 10 mg PO DAILY 90 caps 1RF 90 days F33.0 - Major depressive disorder, recurrent, mild, F41.1 - Generalized anxiety disorder
[2024-11-30 09:00] VITALS: BP 138/80; PULSE 87; O2SAT 96; BMI 37.5
== END 2024-11-30 09:40 | disposition home or self-care (01) ==
LOC: HO.HMCH 08:55
PROVIDERS: PCP Physician Assistant; Visit Provider Physician Assistant
DX: Z00.00 Encounter for general adult medical examination without abnormal findings (principal); F33.0 Major depressive disorder, recurrent, mild; E66.812 Obesity, class 2; Z68.37 Body mass index [BMI] 37.0-37.9, adult; Z12.11 Encounter for screening for malignant neoplasm of colon; E61.1 Iron deficiency

== ENCOUNTER → 2024-11-30 08:55 | Outpatient (BNVA) | payer OTHER, BC, SELFPAY | PROVIDERS: PCP Physician Assistant; Visit Provider Physician Assistant | DX: Z00.00 Encounter for general adult medical examination without abnormal findings (principal); D50.9 Iron deficiency anemia, unspecified; E66.812 Obesity, class 2; F33.0 Major depressive disorder, recurrent, mild; Z68.37 Body mass index [BMI] 37.0-37.9, adult | CPT/HCPCS: 96127 ==

== ENCOUNTER 2024-12-04 07:57 | Outpatient (REF) | payer OTHER, BC, SELFPAY ==
[2024-12-04 09:16] LABS: Hematocrit 40.4 % (37.0-47.0); Hemoglobin 12.7 g/dl (12.0-16.0); Mean Corpuscular HGB Conc 31.4 g/dl (31.0-35.0); Mean Corpuscular Hemoglobin 23.3 pg (27.0-33.0); Mean Corpuscular Volume 74.1 fL (80.0-98.0); NRBC Abs Auto 0.000 X10*3/uL (0.0-0.012); NRBC Pct Auto 0.0 /100WBC (0.0-0.2); Platelet Count 417 X10*3/uL (160-400); Red Blood Count 5.45 X10*6/uL (4.20-5.50); White Blood Count 9.3 X10*3/uL (4.8-10.8)
[2024-12-04 09:51] LABS: Alanine Aminotransferase 14 U/L (0-31); Albumin Level 4.2 g/dL (3.5-5.0); Alkaline Phosphatase 87 U/L (39-117); Anion Gap 12 (12-20); Aspartate Amino Transferase 17 U/L (5-31); Blood Urea Nitrogen 12 mg/dL (9-16); Calcium 9.0 mg/dL (8.4-10.2); Carbon Dioxide 23 mmol/L (22-29); Chloride 107 mmol/L (96-108); Estimated Glomerular Filt Rate > 60; Iron 25 mcg/dL (30-160); Percent Iron Saturation 8 % (15-50); Potassium 4.1 mmol/L (3.3-5.1); Sodium 138 mmol/L (135-145); Total Iron Binding Capacity 331 mcg/dL (228-428); Total Protein 7.3 g/dL (6.5-8.0); Unsaturated Iron Binding 306 ug/dL
[2024-12-04 10:30] LABS: Hemoglobin A1C 140.9399 umol/L; Total Hemoglobin (HGBA1C) 3306.8857 umol/L
== END 2024-12-04 07:58 | disposition home or self-care (01) ==
LOC: HO.MAMMO 07:57
PROVIDERS: PCP Physician Assistant; Visit Provider Physician Assistant
DX: Z12.31 Encounter for screening mammogram for malignant neoplasm of breast (principal); D50.9 Iron deficiency anemia, unspecified; Z13.1 Encounter for screening for diabetes mellitus; N92.0 Excessive and frequent menstruation with regular cycle; R73.01 Impaired fasting glucose
CPT/HCPCS: 36415; 80053; 83036; 83540; 84443; 85027

== ENCOUNTER → 2024-12-31 13:00 | Outpatient (BNV) | payer OTHER, BC, SELFPAY | PROVIDERS: PCP Physician Assistant; Referring Provider Physician Assistant; Visit Provider Nurse Practitioner Family | DX: D50.0 Iron deficiency anemia secondary to blood loss (chronic) (principal); D72.820 Lymphocytosis (symptomatic) | CPT/HCPCS: 99204 ==

== ENCOUNTER 2025-03-26 14:23 | Outpatient (AMB) | payer OTHER, BC, SELFPAY ==
[2025-03-26 14:33] VITALS: BP 126/89; PULSE 84; BMI 37.0
--- NOTE | 2025-03-26 14:33 | A.OFFVIS_ITS ---
Vital Signs 03/26/25 14:33 Height 5 ft 5 in Weight 222 lb 10.67 oz BMI 37.0 BP 126/89 Blood Pressure Location Lt brachial Position Sitting Pulse 84 Intake Visit Reasons: colo screen Intake Note: Patsy presents in the office as a colonoscopy screening CC: She states that she has had stomach issues and states her whole family in the past year all became diabetic. She is calorie def and has been for 2 years. When she eats she has either a hard time with her bowels or issues with throwing up. Chief Nurse Anesthetist Required: No Allergies No Known Allergies Allergy (Verified 03/26/25 14:35) HPI HPI colo screen: Details: 44 year old? female with past medical history of anemia, obesity, MDD, GA 80, diabetes is here today for pre colonoscopy screening.? Patient was sent to us by her PCP.? This is her first colonoscopy screening.? Patient reports epigastric pain and severely reflux depending on what she eats. Patient is okay with chicken and turkey but if she eats steak she will have severe reflux that sometimes feeling like the patient regurgitates the food back. Patient reports that severe upper gastric pain and reflux also with certain sauces, garlic, pizza. Currently patient is not taking anything. Usually takes Tums or Maria Alej[facility]- [place]. Patient reports that it happens about 2 to 3 times a week. Patient also reports constipation. Sometimes no BM for 2-3 days. Patient has to strain in order for her to have a bowel movement. She is on oral iron, however patient reports that she was on iron since she was a teenager. This just started happening about 6 months ago or so. Denies history of difficulty with sedation or anesthesia in the past.? Negative for history of sleep apnea.? Denies any hi story of cardiac, renal, pulmonary, or hepatic disease.?? No history of infectious? diseases like hepatitis A, B, C, HIV or tuberculosis.? Patient is [facility] on any anticoagulation [facility] Surgical History H/O tubal ligation History of loop electrical excision procedure (LEEP) History of neck surgery Family History Mother Diabetes Father Diabetes Maternal Grandmother Cervical cancer, Onset Age: 54 Maternal Aunt Cervical cancer, Onset Age: 50 Brother Diabetes Sister Diabetes Social History Household Members: Other Housing: House Alcohol intake: never Patient Tobacco Use Status: Current someday Tobacco user Tobacco use type: Cigarette and Pipe e-Cigarette/Vaping Use: Never Used Second Hand Smoke Exposure: Yes service: No Current occupational status: employed 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 Cognitive needs: No Hearing needs: No Vision needs: Yes (glasses) Female Reproductive History Menstrual Age of Menarche: 12 Review of Systems Const Denies weight gain and Denies weight loss ENT Reports no additional complaints, Denies dysphagia and Denies odynophagia Card Reports no additional complaints Resp Reports no additional complaints GI Reports abdominal pain (Epigastric), Denies belching, Denies melena, Reports bloating, Denies change in bowel habits, Reports constipation, Denies dysphagia, Denies excessive flatus, Denies dyspepsia, Reports heartburn, Denies diarrhea, Denies loose stools, Denies nausea, Denies odynophagia and Denies vomiting Reports no additional complaints Musc Reports no additional complaints Neuro Reports no additional complaints Psych Reports no additional complaints Endo Reports no additional complaints Physical Exam Vital Signs: BMI result Body Mass Index 37.0 Const General: healthy appearing and no acute distress Nutritional Appearance: obese Orientation/consciousness: patient oriented x3 Resp Effort & Inspection: normal respiratory effort, able to speak in complete sentences, no tracheal deviation and symmetric chest movement Auscultation: clear to auscultation bilaterally Cardio Rate: regular rate GI Inspection: Yes normal to inspection, No distended and Yes obesity Palpation (GI): Soft to palpation, not firm, nontender and No hepatosplenomegaly present Auscultation: normal bowel sounds General: Yes no CVA tenderness Back/Spine/Pelvis Back: no CVA tenderness Skin General skin exam: elasticity normal, turgor normal and dry skin Neuro General: patient oriented x3 Psych Appearance: grossly normal Mental Status: mental status grossly normal Assessment & Plan Assessment & Plan (1) Colon cancer screening: Code(s): Z12.11 - Encounter for screening for malignant neoplasm of colon Category: Medical (2) Gastroesophageal reflux disease: Code(s): K21.9 - Gastro-esophageal reflux disease without esophagitis Qualifiers: Esophagitis presence: esophagitis presence not specified Qualified Code(s): K21.9 - Gastro-esophageal reflux disease without esophagitis (3) Postprandial epigastric pain: Code(s): R10.13 - Epigastric pain (4) Postprandial abdominal bloating: Code(s): R14.0 - Abdominal distension (gaseous) Plan Will start patient on omeprazole daily. Patient was encouraged to avoid dietary triggers only and snacking. Staying upright for minimum 3 hours after meals discussed with patient. Discussed with patient the importance of trying low FODMAP diet. List of food recommended as well as list of food to avoid given to patient. Patient also reports constipation. She can try Dulcolax. Increase fluid intake and activity to promote bowel motility. Patient will return in 2 months we will discuss going for upper endoscopy and colonoscopy. Gi procedure notification sent. Patient is agreeable to current plan of care and verbalizes understanding of instructions. She was given the opportunity to ask questions and all questions answered. Thank you for allowing me to participate in her care Orders: Orders Vitamin D 25-OH (D2 and D3) Today E55.9 - Vitamin D deficiency, unspecified Transglutaminase IgA Today R10.9 - Unspecified abdominal pain Lipase Today R10.9 - Unspecified abdominal pain Referrals GI Procedure Notification K21.9 - Gastro-esophageal reflux disease without esophagitis, Z12.11 - Encounter for screening for malignant neoplasm of colon Medications: New omeprazole 40 mg PO DAILY 30 caps 3RF K21.9 - Gastro-esophageal reflux disease without esophagitis bisacodyl (Dulcolax (bisacodyl)) 10 mg (2 x 5 mg) PO BEDTIME 180 tabs 4RF Coding Level of Care Code New Pt Level 4 (13795) Diagnoses Colon cancer screening Z12.11 Gastroesophageal reflux disease, unspecified whether esophagitis present K21.9 Esophagitis presence: esophagitis presence not specified Postprandial epigastric pain R10.13 Postprandial abdominal bloating R14.0 Time Spent (min) 50 Comment 35 minutes spent with patient and additional 15 minutes spent reviewing her records
== END 2025-03-26 14:53 | disposition home or self-care (01) ==
LOC: HO.HGI 14:24
PROVIDERS: PCP Physician Assistant; Visit Provider Nurse Practitioner Family
DX: Z01.818 Encounter for other preprocedural examination (principal); Z12.11 Encounter for screening for malignant neoplasm of colon; K21.9 Gastro-esophageal reflux disease without esophagitis; R10.13 Epigastric pain; R14.0 Abdominal distension (gaseous)
CPT/HCPCS: 99204